=== PATIENT | female | born 1945 | race Caucasian/White ===

== ENCOUNTER 2017-10-12 06:17 | Day surgery (SDC) | payer MEDICARE ==
[~2017-10-12] VITALS: Ht 162.6 cm; Wt 75.3 kg
[~2017-10-12 06:17] MED LIST: ACET500 PO; AMLO5 PO; ASPI81CH PO; BAYER BACK & B1 EACH PO; CHOL10002 PO; CYAN500 PO; GRAPESEED OIL4000 ML PO; LEVSOD50 PO; LOSA25; LOSA25 PO; Non-Aspirin Ex500 M1 PO; OXYC5 PO; Omeprazole20 M1 PO; TURMERIC500 M1 PO; UBID100 PO; VAGIFEM10 MCG VAG; WARF4 PO
== END 2017-10-12 14:18 | disposition home or self-care (01) ==
LOC: ORSCSDS 06:17
PROVIDERS: Orthopaedic Surgery
PROC: 0LQ24ZZ Repair Left Shoulder Tendon, Percutaneous Endoscopic Approach (ICD-10-PCS; principal; 2017-10-12 07:30)
DX: M75.112 Incomplete rotator cuff tear or rupture of left shoulder, not specified as traumatic (principal); I10 Essential (primary) hypertension; E78.00 Pure hypercholesterolemia, unspecified; E03.9 Hypothyroidism, unspecified; Z79.899 Other long term (current) drug therapy
CPT/HCPCS: C1713; J0171; J0690; J1100; J1885; J2250; J2405; J2765; J3010

== ENCOUNTER → 2018-01-16 | Outpatient (CLI) | payer MEDICARE | END | disposition home or self-care (01) | LOC: PLD 10:59 → LAB SHORT 10:59 | DX: D48.5 Neoplasm of uncertain behavior of skin (principal) | CPT/HCPCS: 88304 ==

== ENCOUNTER → 2023-02-07 | Outpatient (CLI) | payer MEDICARE, OTHER | LOC: LAB 11:49 → LAB SHORT 11:49 → PLD 11:49 | DX: D48.5 Neoplasm of uncertain behavior of skin (principal) | CPT/HCPCS: 88305 ==